=== PATIENT | female | born 1995 | race Caucasian/White ===

== ENCOUNTER 2018-01-01 23:40 | Emergency (ER) | payer OTHER ==
[2018-01-01 23:58] VITALS: TEMP 97.7
[2018-01-02] MEDS ORDERED: ONDANSETRON 4 MG/2 ML VIAL IVP ONE (00:11)
[2018-01-02] MEDS ORDERED: NS 1,000 ML IV ONE ×2 (00:11→00:21)
--- NOTE | 2018-01-02 00:21 | EDPHY ---
H & P Stated Complaint: NAUSEA/VOMIT TONIGHT, ABD PAIN HPI/ROS: HPI CHIEF COMPLAINT: Nausea vomiting, abdominal cramping HISTORY OF PRESENT ILLNESS: This patient very pleasant 22-year-old female she is otherwise healthy with no significant medical history does not take any daily medications except control she presents emergency room with nausea vomiting and abdominal cramping since around 630 this evening approximately 6 hr. She states initially she vomited what she ate this evening. It then turned to greenish discoloration. She denies any focal right lower quadrant pain she does complain of some diffuse abdominal cramping but no diarrhea. Denies fever. Denies chest pain or shortness of breath. Past Medical History: Denies medical history Past Surgical History: Denies surgical history Social History: Denies drugs alcohol tobacco. Family History: Noncontributory ROS REVIEW OF SYSTEMS: A comprehensive 10 point review of systems is otherwise negative aside from elements mentioned in the history of present illness. Exam Constitutional appears well nontoxic no acute distress, triage nursing summary reviewed, vital signs reviewed, awake/alert. Eyes normal conjunctivae and sclera, EOMI, PERRLA. HENT normal inspection, atraumatic, moist mucus membranes, no epistaxis, neck supple/ no meningismus, no raccoon eyes. Respiratory clear to auscultation bilaterally, normal breath sounds, no respiratory distress, no wheezing. Cardiovascular rate normal, regular rhythm, no murmur, no edema, distal pulses normal. Gastrointestinal soft, no focal tenderness on exam, no rebound, no guarding, normal bowel sounds, no distension, no pulsatile mass. Genitourinary no CVA tenderness. Musculoskeletal no midline vertebral tenderness, full range of motion, no calf swelling, no tenderness of extremities, no meningismus, good pulses, neurovascularly intact. Skin pink, warm, & dry, no rash, skin atraumatic. Neurologic awake, alert and oriented x 3, AAOx3, moves all 4 extremities equally, motor intact, sensory intact, CN II-XII intact, normal cerebellar, normal vision, normal speech. Psychiatric normal mood/affect. Heme/Lymph/Immune no lymphadenopathy. Differential diagnosis includes but is not limited to and in no particular order : GI illness, viral illness, enteritis Bowel obstruction, appendicitis, gallbladder disease, diverticulitis, colitis, enteritis, perforated viscus, gastritis, GERD, esophagitis, urinary tract infection, pyelonephritis, kidney stones Medical Decision Making: Plan for this patient IV establishment IV fluid bolus 2 L normal saline, IV Zofran for nausea, IV Pepcid for stomach acid reduction, check basic blood work including electrolytes, check UA, check test, and re-evaluate. At this time I do not feel that she needs any focal imaging Re-evaluation: 0211: Re-examination at this time patient resting comfortably no acute distress. Abdomen is soft on re-examination no vomiting here. She p.o. challenge well. She states she does feel better after 2 L of fluid. Re- examination her abdomen is soft nontender. I do not feel that she needs any emergency imaging. Recommend bland diet over the next 24-48 hours. Prescription for Zofran. Return precautions discussed with her. She understands return emergency room if develops worsening abdominal pain fever or vomiting. Source: Patient - Personal History LMP (Females 10-55): Now Current Tetanus/Diphtheria Vaccine: Yes - Medical/Surgical History Hx Asthma: No Hx Chronic Respiratory Disease: No Hx Diabetes: No Hx Cardiac Disease: No Hx Renal Disease: No Hx Cirrhosis: No Hx Alcoholism: No Hx HIV/AIDS: No Hx Splenectomy or Spleen Trauma: No Other PMH: none - Social History Smoking Status: Never smoked Constitutional: Initial Vital Signs Temperature (C) 36.5 C 01/01/18 23:52 Heart Rate 120 H 01/01/18 23:52 Respiratory Rate 20 01/01/18 23:52 Blood Pressure 123/88 H 01/01/18 23:52 O2 Sat (%) 98 01/01/18 23:52 O2 Delivery Mode Room Air Allergies/Adverse Reactions: No Known Allergies Allergy (Verified 01/01/18 23:52) Home Medications: Medication Instructions Recorded Bcp 03/06/15 Ondansetron HCl [Zofran] 4 mg PO Q4-6PRN PRN #10 tablet 01/02/18 Medical Decision Making - Data Points Laboratory Results: Laboratory Results 01/02/18 00:20 01/02/18 00:20 01/02/18 01/02/18 01/02/18 01:48 00:20 00:20 WBC RBC Hgb Hct MCV MCH MCHC RDW Plt Count MPV Neut % (Auto) Lymph % (Auto) [place] % (Auto) Eos % (Auto) Baso % (Auto) Nucleat RBC Rel Count Absolute Neuts (auto) Absolute Lymphs (auto) Absolute Monos (auto) Absolute Eos (auto) Absolute Basos (auto) Absolute Nucleated RBC Immature Gran % Immature Gran # Sodium 140 mEq/L mEq/L (135-145) Potassium 4.2 mEq/L mEq/L (3.5-5.2) Chloride 106 mEq/L mEq/L (97-110) Carbon Dioxide 21 mEq/l L mEq/l (22-31) Anion Gap 13 mEq/L mEq/L (8-16) BUN 10 mg/dL mg/dL (7-23) Creatinine 0.6 mg/dL mg/dL (0.6-1.0) Estimated GFR > 60 Glucose 110 mg/dL H mg/dL (70-100) Calcium 9.2 mg/dL mg/dL (8.5-10.4) Total Bilirubin 0.4 mg/dL mg/dL (0.1-1.4) Conjugated Bilirubin 0.2 mg/dL mg/dL (0.0-0.5) Unconjugated Bilirubin 0.2 mg/dL mg/dL (0.0-1.1) AST 21 IU/L IU/L (14-46) ALT 28 IU/L IU/L (9-52) Alkaline Phosphatase 64 IU/L IU/L (38-126) Total Protein 7.0 g/dL g/dL (6.3-8.2) Albumin 4.3 g/dL g/dL (3.5-5.0) Lipase 65 IU/L IU/L (23-300) Beta HCG, Qual NEGATIVE Urine Color PALE YELLOW Urine Appearance CLEAR Urine pH 6.0 (5.0-7.5) Ur Specific [place] 1.005 (1.002-1.030) Urine Protein NEGATIVE (NEGATIVE) Urine Ketones NEGATIVE (NEGATIVE) Urine Blood NEGATIVE (NEGATIVE) Urine Nitrate NEGATIVE (NEGATIVE) Urine Bilirubin NEGATIVE (NEGATIVE) Urine Urobilinogen NEGATIVE EU EU (0.2-1.0) Ur Leukocyte Esterase NEGATIVE (NEGATIVE) Urine Glucose NEGATIVE (NEGATIVE) 01/02/18 00:20 WBC 10.83 10^3/uL H 10^3/uL (3.80-9.50) RBC 5.13 10^6/uL 10^6/uL (4.18-5.33) Hgb 15.6 g/dL g/dL (12.6-16.3) Hct 45.5 % % (38.0-47.0) MCV 88.7 fL fL (81.5-99.8) MCH 30.4 pg pg (27.9-34.1) MCHC 34.3 g/dL g/dL (32.4-36.7) RDW 12.4 % % (11.5-15.2) Plt Count 260 10^3/uL 10^3/uL (150-400) MPV 9.9 fL fL (8.7-11.7) Neut % (Auto) 85.9 % H % (39.3-74.2) Lymph % (Auto) 5.7 % L % (15.0-45.0) [place] % (Auto) 7.3 % % (4.5-13.0) Eos % (Auto) 0.4 % L % (0.6-7.6) Baso % (Auto) 0.2 % L % (0.3-1.7) Nucleat RBC Rel Count 0.0 % % (0.0-0.2) Absolute Neuts (auto) 9.31 10^3/uL H 10^3/uL (1.70-6.50) Absolute Lymphs (auto) 0.62 10^3/uL L 10^3/uL (1.00-3.00) Absolute Monos (auto) 0.79 10^3/uL 10^3/uL (0.30-0.80) Absolute Eos (auto) 0.04 10^3/uL 10^3/uL (0.03-0.40) Absolute Basos (auto) 0.02 10^3/uL 10^3/uL (0.02-0.10) Absolute Nucleated RBC 0.00 10^3/uL 10^3/uL (0-0.01) Immature Gran % 0.5 % % (0.0-1.1) Immature Gran # 0.05 10^3/uL 10^3/uL (0.00-0.10) Sodium Potassium Chloride Carbon Dioxide Anion Gap BUN Creatinine Estimated GFR Glucose Calcium Total Bilirubin Conjugated Bilirubin Unconjugated Bilirubin AST ALT Alkaline Phosphatase Total Protein Albumin Lipase Beta HCG, Qual Urine Color Urine Appearance Urine pH Ur Specific [place] Urine Protein Urine Ketones Urine Blood Urine Nitrate Urine Bilirubin Urine Urobilinogen Ur Leukocyte Esterase Urine Glucose Medications Given: Discontinued Medications Famotidine (Pepcid) 20 mg IVP EDNOW ONE Stop: 01/02/18 00:24 Last Admin: 01/02/18 00:29 Dose: 20 mg Sodium Chloride (Ns) 1,000 mls @ 0 mls/hr IV EDNOW ONE; Wide Open PRN Reason: Protocol Stop: 01/02/18 00:12 Last Admin: 01/02/18 00:27 Dose: 1,000 mls Sodium Chloride (Ns) 1,000 mls @ 0 mls/hr IV ONCE ONE PRN Reason: Wide Open Stop: 01/02/18 00:22 Last Admin: 01/02/18 00:27 Dose: 1,000 mls Ondansetron HCl (Zofran) 4 mg IVP EDNOW ONE Stop: 01/02/18 00:12 Last Admin: 01/02/18 00:27 Dose: 4 mg Departure - Departure Disposition: Home, Routine, Self-Care Clinical Impression: Nausea and vomiting Qualifiers: Vomiting type: unspecified Vomiting Intractability: intractable Qualified Code( s): R11.2 - Nausea with vomiting, unspecified Condition: Good Instructions: Acute Nausea and Vomiting (ED) Additional Instructions: 1. [place] diet over the next 24-48 hours. No spicy fatty greasy foods. 2. Zofran as needed for nausea. 3. Return to the emergency room if develops worsening abdominal pain fever vomiting. Referrals: NONE *PRIMARY CARE P,. [Primary Care Provider] - As per Instructions Prescriptions: Ondansetron HCl [Zofran] 4 mg PO Q4-6PRN PRN #10 tablet PRN Reason: Nausea/Vomiting, Use 1st
[2018-01-02] MEDS ORDERED: FAMOTIDINE 20 MG/2 ML SDV IVP ONE (00:23)
[2018-01-02 00:30] LABS: PLATELET COUNT 260 10^3/uL (150-400)
[2018-01-02 01:46] VITALS: PULSE 98
[2018-01-02 02:22] VITALS: BP 131/69; RESP 16; O2SAT 97
== END 2018-01-02 02:21 | disposition home or self-care (01) ==
DX: R11.2 Nausea with vomiting, unspecified (principal); E86.9 Volume depletion, unspecified
CPT/HCPCS: 96374; J2405

== ENCOUNTER 2018-04-05 09:31 | Emergency (ER) | payer OTHER ==
--- NOTE | 2018-04-05 09:49 | EDPHY ---
H & P Stated Complaint: abd pain - Personal History LMP (Females 10-55): 1-7 Days Ago Current Tetanus/Diphtheria Vaccine: Yes Current Tetanus Diphtheria and Acellular Pertussis (TDAP): Yes - Medical/Surgical History Hx Asthma: No Hx Chronic Respiratory Disease: No Hx Diabetes: No Hx Cardiac Disease: No Hx Renal Disease: No Hx Cirrhosis: No Hx Alcoholism: No Hx HIV/AIDS: No Hx Splenectomy or Spleen Trauma: No Other PMH: none - Social History Smoking Status: Never smoked Time Seen by Provider: 04/05/18 09:39 HPI/ROS: CHIEF COMPLAINT: Nausea, diarrhea, abdominal pain x times 30 hr HISTORY OF PRESENT ILLNESS: 22-year-old female with no known history of chronic abdominal pathology in the ER via private vehicle complaining of 30 hr of 20+ episodes of diarrhea and nausea, abdominal cramping. She was seen at her primary care provider's office and referred to the ER for concerns over right lower quadrant pain and acute appendicitis. Denies discoloration of her stool such as melena or hematochezia. Denies untreated water sources. Denies recent antibiotic use. Denies known sick contacts or international travel. Denies fever chills. Denies back or flank pain. Denies urinary abnormality. Primary care provider: [facility] REVIEW OF SYSTEMS: A ten point review of systems was performed and is negative with the exception of the items mentioned in the HPI PAST MEDICAL & SURGICAL HISTORY: No history of abdominal surgeries SOCIAL HISTORY: Nonsmoker PHYSICAL EXAM (Prior to examination, patient consented to physical exam, hands were washed and my usual and customary physical exam procedures followed) 1) GENERAL: Well-developed, well-nourished, alert and oriented. Appears to be in no acute distress. 2) HEAD: Normocephalic, atraumatic 3) HEENT: Pupils equal, round, reactive to light bilaterally. Sclera anicteric. Nasopharynx, oropharynx, clear, no lesions. Dry mucous membranes 4) NECK: Full range of motion, no meningeal signs. 5) LUNGS: Clear auscultation bilaterally, no wheezes, no rhonchi, no retractions. 6) HEART: Regular rate and rhythm, no murmur, no heave, no gallop. 7) ABDOMEN: No guarding, positive right lower quadrant tenderness with palpation , negative Heard's, negative Rovsing's, negative peritoneal sign, 8) MUSCULOSKELETAL: Moving all extremities, no focal areas of tenderness, no obvious trauma. No peripheral edema or discoloration. 9) BACK: No CVA tenderness, no midline vertebral tenderness, no fluctuance, no step-off, no obvious trauma, no visual or palpable abnormality. 10) SKIN: No rash, no petechiae. 11) Psychiatric: Patient is oriented X 3, there is no agitation. DIFFERENTIAL DIAGNOSIS: My differential diagnosis includes, but is not limited to, acute appendicitis, acute cholecystitis, bowel obstruction, acute pancreatitis, ovarian torsion, ectopic , gastritis and urinary tract infection. The patient understands that this diagnosis is provisional and can never be 100% accurate. This is a partial list of diagnoses considered. These considerations are based on history, physical exam, past history and reassessment. (Nanci Mcrae) Constitutional: Initial Vital Signs Temperature (C) 36.5 C 04/05/18 09:36 Heart Rate 101 H 04/05/18 09:36 Respiratory Rate 16 04/05/18 09:36 Blood Pressure 138/103 H 04/05/18 09:36 O2 Sat (%) 94 04/05/18 09:36 O2 Delivery Mode Room Air Allergies/Adverse Reactions: No Known Allergies Allergy (Verified 04/05/18 09:36) Home Medications: Medication Instructions Recorded Bcp 03/06/15 Medical Decision Making - Diagnostics Imaging Results: Imaging Impressions Abdomen CT 04/05/18 10:35 Impression: 1. L5-S1 small central disk herniation. 2. No CT evidence of appendicitis, abscess or bowel obstruction. 3. Otherwise normal CT abdomen and pelvis. Findings and recommendations discussed with Emergency Department physicianNanci PA-C at 1140 hour, 04/05/2018. Final report concurs with initial preliminary interpretation. Images reviewed myself (Nanci Mcrae) ED Course/Re-evaluation: I did not see this patient while she was in the emergency department. However her care was discussed with the PA while the patient was in the department. I agree with treatment plan and management (Bryce Hobson) 9:51 a.m.: Will obtain diagnostic studies, administer IV hydration. Care of patient under supervision of supervising physician Dr Hobson with whom I discussed case Patient was re-evaluated with serial examinations most recently at 1:00 p.m.. She appears improved, she is tolerating oral intake. Abdomen is soft no guarding or rebound. Discussed her CT imaging which is negative for appendicitis. At this time doubt acute surgical abdominal pathology. I think the patient can be discharged home with usual and customary abdominal precautions instructions. She feels comfortable being discharged. (Nanci Mcrae) - Data Points Laboratory Results: Laboratory Results 04/05/18 10:00 04/05/18 10:00 04/05/18 04/05/18 04/05/18 12:10 10:29 10:00 WBC RBC Hgb Hct MCV MCH MCHC RDW Plt Count MPV Neut % (Auto) Lymph % (Auto) [place] % (Auto) Eos % (Auto) Baso % (Auto) Nucleat RBC Rel Count Absolute Neuts (auto) Absolute Lymphs (auto) Absolute Monos (auto) Absolute Eos (auto) Absolute Basos (auto) Absolute Nucleated RBC Immature Gran % Immature Gran # Sodium Potassium Chloride Carbon Dioxide Anion Gap BUN Creatinine Estimated GFR Glucose Calcium Total Bilirubin Conjugated Bilirubin Unconjugated Bilirubin AST ALT Alkaline Phosphatase Total Protein Albumin Lipase Beta HCG, Qual NEGATIVE Urine Color PALE YELLOW REJ Urine Appearance CLEAR REJ Urine pH 5.0 REJ (5.0-7.5) Ur Specific [place] 1.016 REJ (1.002-1.030) Urine Protein NEGATIVE REJ (NEGATIVE) Urine Ketones TRACE H REJ (NEGATIVE) Urine Blood NEGATIVE REJ (NEGATIVE) Urine Nitrate NEGATIVE REJ (NEGATIVE) Urine Bilirubin NEGATIVE REJ (NEGATIVE) Urine Urobilinogen NEGATIVE EU EU REJ (0.2-1.0) Ur Leukocyte Esterase NEGATIVE REJ (NEGATIVE) Urine RBC Not Reported REJ Urine WBC NONE SEEN /hpf /hpf REJ (0-3) Ur Epithelial Cells NONE SEEN /lpf /lpf REJ (NONE-1+) Ur Renal Epithelial Cell NONE SEEN /hpf /hpf REJ (NONE SEEN) Urine Crystals REJ Ammonium Urate Crystals REJ Calcium Carbonate Cryst REJ Calcium Phosphate Cryst REJ Calcium Oxalate Crystal REJ Leucine Crystals REJ Cystine Crystals REJ Uric Acid Crystals REJ Triple Phos Crystals REJ Sulfonamide Crystals REJ Cholesterol Crystals REJ Tyrosine Crystals REJ Bilirubin Crystals REJ Amorphous Sediment REJ Urine Bacteria TRACE /hpf H /hpf REJ (NONE SEEN) Epithelial Casts REJ Fatty Casts REJ Hyaline Casts REJ Granular Casts REJ Waxy Casts REJ Broad Casts REJ RBC Casts REJ WBC Casts REJ Urine Mucus TRACE /lpf /lpf REJ (NONE-1+) Urine Trichomonas REJ Urine Yeast REJ Urine Sperm REJ Ur Oval Fat Bodies REJ Ur Free Fat Droplets REJ Urine Glucose NEGATIVE REJ (NEGATIVE) Urine Comment REJ 04/05/18 04/05/18 10:00 10:00 WBC 4.42 10^3/uL 10^3/uL (3.80-9.50) RBC 5.17 10^6/uL 10^6/uL (4.18-5.33) Hgb 15.5 g/dL g/dL (12.6-16.3) Hct 46.1 % % (38.0-47.0) MCV 89.2 fL fL (81.5-99.8) MCH 30.0 pg pg (27.9-34.1) MCHC 33.6 g/dL g/dL (32.4-36.7) RDW 12.8 % % (11.5-15.2) Plt Count 231 10^3/uL 10^3/uL (150-400) MPV 9.8 fL fL (8.7-11.7) Neut % (Auto) 73.3 % % (39.3-74.2) Lymph % (Auto) 15.4 % % (15.0-45.0) [place] % (Auto) 10.4 % % (4.5-13.0) Eos % (Auto) 0.2 % L % (0.6-7.6) Baso % (Auto) 0.2 % L % (0.3-1.7) Nucleat RBC Rel Count 0.0 % % (0.0-0.2) Absolute Neuts (auto) 3.24 10^3/uL 10^3/uL (1.70-6.50) Absolute Lymphs (auto) 0.68 10^3/uL L 10^3/uL (1.00-3.00) Absolute Monos (auto) 0.46 10^3/uL 10^3/uL (0.30-0.80) Absolute Eos (auto) 0.01 10^3/uL L 10^3/uL (0.03-0.40) Absolute Basos (auto) 0.01 10^3/uL L 10^3/uL (0.02-0.10) Absolute Nucleated RBC 0.00 10^3/uL 10^3/uL (0-0.01) Immature Gran % 0.5 % % (0.0-1.1) Immature Gran # 0.02 10^3/uL 10^3/uL (0.00-0.10) Sodium 138 mEq/L mEq/L (135-145) Potassium 4.3 mEq/L mEq/L (3.3-5.0) Chloride 103 mEq/L mEq/L (97-110) Carbon Dioxide 20 mEq/l L mEq/l (22-31) Anion Gap 15 mEq/L mEq/L (8-16) BUN 9 mg/dL mg/dL (7-23) Creatinine 0.7 mg/dL mg/dL (0.6-1.0) Estimated GFR > 60 Glucose 73 mg/dL mg/dL (70-100) Calcium 9.0 mg/dL mg/dL (8.5-10.4) Total Bilirubin 0.5 mg/dL mg/dL (0.1-1.4) Conjugated Bilirubin 0.3 mg/dL mg/dL (0.0-0.5) Unconjugated Bilirubin 0.2 mg/dL mg/dL (0.0-1.1) AST 27 IU/L IU/L (14-46) ALT 30 IU/L IU/L (9-52) Alkaline Phosphatase 59 IU/L IU/L (38-126) Total Protein 7.1 g/dL g/dL (6.3-8.2) Albumin 4.3 g/dL g/dL (3.5-5.0) Lipase 54 IU/L IU/L (23-300) Beta HCG, Qual Urine Color Urine Appearance Urine pH Ur Specific [place] Urine Protein Urine Ketones Urine Blood Urine Nitrate Urine Bilirubin Urine Urobilinogen Ur Leukocyte Esterase Urine RBC Urine WBC Ur Epithelial Cells Ur Renal Epithelial Cell Urine Crystals Ammonium Urate Crystals Calcium Carbonate Cryst Calcium Phosphate Cryst Calcium Oxalate Crystal Leucine Crystals Cystine Crystals Uric Acid Crystals Triple Phos Crystals Sulfonamide Crystals Cholesterol Crystals Tyrosine Crystals Bilirubin Crystals Amorphous Sediment Urine Bacteria Epithelial Casts Fatty Casts Hyaline Casts Granular Casts Waxy Casts Broad Casts RBC Casts WBC Casts Urine Mucus Urine Trichomonas Urine Yeast Urine Sperm Ur Oval Fat Bodies Ur Free Fat Droplets Urine Glucose Urine Comment Medications Given: Discontinued Medications Sodium Chloride (Ns) 1,000 mls @ 0 mls/hr IV ONCE ONE PRN Reason: Wide Open Stop: 04/05/18 09:58 Last Admin: 04/05/18 09:58 Dose: 1,000 mls Ondansetron HCl (Zofran) 4 mg IVP EDNOW ONE Stop: 04/05/18 09:59 Last Admin: 04/05/18 09:59 Dose: 4 mg Departure - Departure Disposition: Home, Routine, Self-Care Clinical Impression: Diarrhea Qualifiers: Diarrhea type: unspecified type Qualified Code(s): R19.7 - Diarrhea, unspecified Condition: Good Instructions: Acute Diarrhea (ED) Additional Instructions: Seek immediate medical attention if you develop new or worsening symptoms, if you develop fevers, chills, inability to tolerate oral intake or any other symptoms that concerns you. Referrals: [facility],. [Clinic] - 1-2 days without fail Stand Alone Forms: School Excuse, Work Excuse
[2018-04-05] MEDS ORDERED: ONDANSETRON 4 MG/2 ML VIAL ONE (09:51)
[2018-04-05] MEDS ORDERED: NS 1,000 ML IV ONE (09:57)
[2018-04-05] MEDS ORDERED: ONDANSETRON 4 MG/2 ML VIAL IVP ONE (09:58)
[2018-04-05 10:10] LABS: PLATELET COUNT 231 10^3/uL (150-400)
[2018-04-05] MEDS ORDERED: IOPAMIDOL (ISOVUE-300) 100 ML BTL ONE (10:53)
[2018-04-05 13:22] VITALS: BP 122/76
== END 2018-04-05 13:34 | disposition home or self-care (01) ==
DX: R19.7 Diarrhea, unspecified (principal)
CPT/HCPCS: 96374; J2405; Q9967